=== PATIENT | female | born 1970 | race Hispanic/Latino ===

== ENCOUNTER 2018-05-09 04:18 | Emergency (ER) | payer OTHER, MEDICARE ==
[2018-05-09] MEDS ORDERED: KETOROLAC TROMETHAMINE 30MG/ML ONE (04:36)
[2018-05-09] MEDS ORDERED: SODIUM CHLORIDE 0.9% 1000ML 1,000 ML IV ONE (04:36)
[2018-05-09 04:40] LABS: EOSINOPHILS % (AUTO) 8.3 % (0.0-8.0); HEMATOCRIT 37.2 % (36-48); MEAN CORPUSCULAR HGB CONC 32.4 g/dL (32.0-36.0); MEAN CORPUSCULAR VOLUME 89.7 fL (79-99); MONOCYTES % (AUTO) 6.3 % (3.0-13.0); NEUTROPHILS % (AUTO) 50.4 % (40.0-77.0); PLATELET COUNT (AUTO) 208 K/uL (130-400); RED BLOOD CELL COUNT(AUTO) 4.15 MIL/uL (4.00-5.50); WHITE BLOOD COUNT (AUTO) 7.7 K/uL (4.8-10.8)
[2018-05-09 04:40] LABS: APPEARANCE,URINE Clear (CLEAR); BILIRUBIN,URINE Negative (NEGATIVE); COLOR,URINE Yellow (YELLOW); GLUCOSE, URINE (UA) Negative (NEGATIVE); KETONES,URINE Negative (NEGATIVE); LEUKOCYTE ESTERASE ,URINE Negative (NEGATIVE); NITRATE,URINE Negative (NEGATIVE); OCCULT BLOOD,URINE Negative (NEGATIVE); PROTEIN,URINE Negative (NEGATIVE)
[2018-05-09 04:48] LABS: CREATININE 0.8 mg/dL (0.5-1.5); POTASSIUM 3.9 mmol/L (3.5-5.1)
[2018-05-09 04:52] LABS: ALBUMIN 3.3 g/dL (3.5-5.0); BILIRUBIN,TOTAL 0.4 mg/dL (0.2-1.0)
[2018-05-09] MEDS ORDERED: ZIPRASIDONE MESYLATE 20 MG/VIAL IM ONE (04:54)
== END 2018-05-09 06:38 | disposition home or self-care (01) ==
LOC: EDH 04:18
DX: G89.29 Other chronic pain (principal); M54.5 Low back pain
CPT/HCPCS: 36415; 74176; 80053; 81003; 81025; 85025; 96372; 96374; 99285; J1885; J3486; J7030

== ENCOUNTER → 2022-01-24 | Outpatient (CLI) | payer OTHER, MEDICARE ==
[~2022-01-24] MED LIST: ALPR2TAB9 PO; CETI10CA5 PO; HYDR-4068 PO; INS7030 SQ; METF-910 PO; OMEP-272 PO; TRAZ-187 PO; ZOLP5TAB8 PO
== END | disposition home or self-care (01) ==
LOC: RAH 10:00
PROVIDERS: ATTEND Surgery
DX: R13.10 Dysphagia, unspecified (principal)
CPT/HCPCS: 74250

== ENCOUNTER → 2022-04-18 | Outpatient (CLI) | payer MEDICARE, OTHER | END | disposition home or self-care (01) | LOC: DTH 13:05 | PROVIDERS: ATTEND Surgery | DX: Z71.3 Dietary counseling and surveillance (principal); G47.33 Obstructive sleep apnea (adult) (pediatric); E11.9 Type 2 diabetes mellitus without complications; K76.0 Fatty (change of) liver, not elsewhere classified; K21.9 Gastro-esophageal reflux disease without esophagitis; E66.09 Other obesity due to excess calories; Z68.35 Body mass index [BMI] 35.0-35.9, adult | CPT/HCPCS: 97802 ==

== ENCOUNTER 2022-06-19 06:53 | Observation (INO) | payer OTHER, MEDICARE ==
[2022-06-15 10:45] LABS: BASOPHILS % (AUTO) 0.1 % (0.0-5.0); LYMPHOCYTES % (AUTO) 10.3 % (21.0-51.0); MEAN CORPUSCULAR HEMOGLOBIN 28.6 pg (27.0-33.0); MEAN CORPUSCULAR VOLUME 89.5 fL (79-99); MONOCYTES % (AUTO) 1.9 % (3.0-13.0); NEUTROPHILS % (AUTO) 87.2 % (40.0-77.0); PLATELET COUNT (AUTO) 253 K/uL (130-400); RED BLOOD CELL COUNT(AUTO) 4.47 MIL/uL (4.00-5.50); WHITE BLOOD COUNT (AUTO) 13.6 K/uL (4.8-10.8)
[2022-06-15 10:47] LABS: APPEARANCE,URINE CLEAR (CLEAR); BILIRUBIN,URINE NEGATIVE (NEGATIVE); COLOR,URINE YELLOW (YELLOW); GLUCOSE, URINE (UA) NEGATIVE (NEGATIVE); KETONES,URINE NEGATIVE (NEGATIVE); LEUKOCYTE ESTERASE ,URINE NEGATIVE Leu/uL (NEGATIVE); NITRATE,URINE NEGATIVE (NEGATIVE); OCCULT BLOOD,URINE NEGATIVE (NEGATIVE); PH,URINE 7.5 (5.0-8.0); PROTEIN,URINE NEGATIVE (NEGATIVE); UROBILINOGEN,URINE 0.2 mg/dL (0.2-1.0)
[2022-06-15 10:58] LABS: CREATININE 0.9 mg/dL (0.5-1.5); INR 0.93 (0.85-1.15)
[2022-06-15 10:59] LABS: PARTIAL THROMBOPLASTIN TIME 25.6 SEC (26.3-35.5)
[2022-06-15 11:20] LABS: B-TYPE NATRIURETIC PEPTIDE 16 pg/mL (0-100)
[2022-06-15 15:07] VITALS: BP 116/70
[2022-06-19] VITALS (35 sets, daily range): BP systolic 91–148; BP diastolic 31–90
[~2022-06-19] VITALS: Ht 165.1 cm; Wt 98.4 kg
[~2022-06-19 06:53] MED LIST changes: +VARE1TAB28 PO
[2022-06-19] MEDS ORDERED: LIDOCAINE PF 100MG/5ML (2%) SYRINGE 5ML ONE (07:32)
[2022-06-19] MEDS ORDERED: PROPOFOL 10 MG/ML 20ML VIAL IV ONE (07:33)
[2022-06-19] MEDS ORDERED: GLYCOPYRROLATE 1 MG/5 ML SYRINGE ONE (07:33)
[2022-06-19] MEDS ORDERED: NEOSTIGMINE 5MG/5ML SYR IV ONE (07:33)
[2022-06-19] MEDS ORDERED: ROCURONIUM 10MG/1ML SYR 10 MG/ML ML ONE ×2 (07:34→08:51)
[2022-06-19] MEDS ORDERED: MIDAZOLAM HCL 1 MG/ML 2ML VIAL ONE ×2 (07:34→10:33)
[2022-06-19] MEDS ORDERED: KETOROLAC 30MG VIAL (30MG/ML) ONE (07:34)
[2022-06-19] MEDS ORDERED: FENTANYL CITRATE PF 50 MCG/1 ML 2ML VIAL ONE ×2 (07:35→08:31)
[2022-06-19] MEDS ORDERED: PHENYLEPHRINE HCL 10 MG/ML 1ML VIAL IV ONE (07:37)
[2022-06-19] MEDS ORDERED: CEFAZOLIN SODIUM 1 GM VIAL IVP ONE (08:00)
[2022-06-19] MEDS ORDERED: 0.9%NACL 1000ML 1,000 ML IV SCH (08:00)
[2022-06-19] MEDS ORDERED: CEFAZOLIN SODIUM 2 GM VIAL IVP ONE (08:05)
[2022-06-19] MEDS ORDERED: HYDROMORPHONE 1 MG INJ ONE ×2 (10:07→10:32)
[2022-06-19] MEDS ORDERED: DiphenhydrAMINE HCL 50 MG/ML VIAL ONE (10:41)
[2022-06-19] MEDS ORDERED: ONDANSETRON 4MG INJ IVP PRN (12:30)
[2022-06-19] MEDS ORDERED: MORPHINE 4 MG SYG IVP PRN (12:30)
[2022-06-19] MEDS: LACTATED RINGERS 1000ML 1,000 ML IV SCH (13:58)
[2022-06-19] MEDS: KETOROLAC 30MG VIAL (30MG/ML) IM PRN ×2 (14:17→21:34)
[2022-06-19] MEDS: METFORMIN HCL 500 MG TABLET PO SCH (16:54)
[2022-06-19] MEDS: CEFAZOLIN SODIUM 2 GM VIAL IVP SCH (16:56)
[2022-06-19] MEDS: HYDROCODONE/ACETAMINOPHEN 10/325 MG TAB PO SCH (17:33)
[2022-06-19] MEDS: MORPHINE 4 MG SYG IVP PRN (18:50)
[2022-06-19] MEDS: VARENICLINE 1MG TABLET PO SCH (21:00)
[2022-06-19] MEDS: ALPRAZOLAM 2 MG PO SCH (21:00)
[2022-06-19] MEDS: PANTOPRAZOLE 40 MG TAB DR PO SCH (21:32)
[2022-06-19] MEDS: TRAZODONE HCL 100 MG TABLET PO SCH (21:32)
[2022-06-19] MEDS ORDERED: CEFAZOLIN SODIUM 1 GM VIAL ONE (23:20)
[2022-06-20 00:04] VITALS: BP 98/55
[2022-06-20] MEDS: HYDROCODONE/ACETAMINOPHEN 10/325 MG TAB PO SCH ×4 (00:04→16:37)
[2022-06-20] MEDS: CEFAZOLIN SODIUM 2 GM VIAL IVP SCH ×3 (00:07→16:32)
[2022-06-20] MEDS: ZOLPIDEM TARTRATE 5 MG TAB PO SCH ×2 (00:24→21:22)
[2022-06-20 04:16] VITALS: BP 98/56
[2022-06-20 04:26] LABS: HEMATOCRIT 31.2 % (36-48); MEAN CORPUSCULAR HEMOGLOBIN 29.2 pg (27.0-33.0); MEAN CORPUSCULAR HGB CONC 32.4 g/dL (32.0-36.0); MEAN CORPUSCULAR VOLUME 90.2 fL (79-99); RED BLOOD CELL COUNT(AUTO) 3.46 MIL/uL (4.00-5.50); RED CELL DISTRIBUTION WIDTH 14.4 % (11.0-15.5); WHITE BLOOD COUNT (AUTO) 10.5 K/uL (4.8-10.8)
[2022-06-20 04:31] LABS: POTASSIUM 3.7 mmol/L (3.5-5.1)
[2022-06-20] MEDS: LACTATED RINGERS 1000ML 1,000 ML IV SCH ×2 (06:06→19:12)
[2022-06-20] MEDS: MORPHINE 4 MG SYG IVP PRN ×3 (06:15→19:13)
[2022-06-20 07:36] VITALS: BP 102/61
[2022-06-20] MEDS ORDERED: CEFAZOLIN SODIUM 1 GM VIAL ONE (07:51)
[2022-06-20] MEDS: METFORMIN HCL 500 MG TABLET PO SCH ×2 (08:06→16:32)
[2022-06-20] MEDS: INSULIN HUMULIN 70/30 100 UNIT/ML 3ML SQ SCH (09:00)
[2022-06-20] MEDS: VARENICLINE 1MG TABLET PO SCH ×2 (09:00→21:00)
[2022-06-20] MEDS: ALPRAZOLAM 2 MG PO SCH ×3 (09:00→21:00)
[2022-06-20] MEDS: CETIRIZINE HCL 5 MG TABLET PO SCH (09:01)
[2022-06-20] MEDS: PANTOPRAZOLE 40 MG TAB DR PO SCH ×2 (09:01→21:22)
[2022-06-20] MEDS: KETOROLAC 30MG VIAL (30MG/ML) IM PRN (09:17)
[2022-06-20] MEDS ORDERED: TRAMADOL HCL 50 MG TABLET PO PRN (11:00)
[2022-06-20] MEDS ORDERED: DOCUSATE SODIUM 100 MG CAP PO SCH (11:00)
[2022-06-20 11:47] VITALS: BP 99/59
[2022-06-20 16:17] VITALS: BP 99/55
[2022-06-20 19:19] VITALS: BP 93/64
[2022-06-20] MEDS: DOCUSATE SODIUM 100 MG CAP PO SCH (21:21)
[2022-06-20] MEDS: TRAZODONE HCL 100 MG TABLET PO SCH (21:22)
[2022-06-21] MEDS: HYDROCODONE/ACETAMINOPHEN 10/325 MG TAB PO SCH ×3 (00:22→10:54)
[2022-06-21 00:24] VITALS: BP 109/70
[2022-06-21 03:25] VITALS: BP 117/62
[2022-06-21 07:23] VITALS: BP 103/81
[2022-06-21] MEDS: DOCUSATE SODIUM 100 MG CAP PO SCH (08:26)
[2022-06-21] MEDS: CETIRIZINE HCL 5 MG TABLET PO SCH (08:26)
[2022-06-21] MEDS: METFORMIN HCL 500 MG TABLET PO SCH (08:26)
[2022-06-21] MEDS: PANTOPRAZOLE 40 MG TAB DR PO SCH (08:26)
[2022-06-21] MEDS: VARENICLINE 1MG TABLET PO SCH (09:00)
[2022-06-21] MEDS: INSULIN HUMULIN 70/30 100 UNIT/ML 3ML SQ SCH (09:00)
[2022-06-21] MEDS: ALPRAZOLAM 2 MG PO SCH ×2 (09:00→14:00)
[2022-06-21] MEDS: LACTATED RINGERS 1000ML 1,000 ML IV SCH (10:57)
[2022-06-21 11:42] VITALS: BP 132/51
[2022-06-21] MEDS: KETOROLAC 30MG VIAL (30MG/ML) IM PRN (14:07)
[2022-06-21] MEDS ORDERED: LACTULOSE 20 GM/30 ML UDCUP PR SCH (14:30)
== END 2022-06-21 15:15 | disposition home or self-care (01) ==
LOC: DAH 06:53 → DAHIP 06:54 → 4AH 12:06 → WSH 17:46
PROVIDERS: ADMIT Surgery; ATTEND Surgery
DX: K43.2 Incisional hernia without obstruction or gangrene (principal); Z20.822 Contact with and (suspected) exposure to COVID-19; Z79.899 Other long term (current) drug therapy
CPT/HCPCS: 36415; 80048; 81003; 82948; 83880; 85025; 85027; 85610; 85730; 87426; 96372; 96374; 96375; 96376; G0378; G0379; J0690; J1170; J1200; J1885; J2001; J2250; J2270; J2370; J2704; J2710; J3010; J3490; J7030; J7120